=== PATIENT | male | born 1945 | race Caucasian/White ===

== ENCOUNTER 2025-03-17 06:07 | Emergency (ER) | payer MEDICARE, BC, SELFPAY ==
[2025-03-17 06:10] VITALS: BP 155/106
--- NOTE | 2025-03-17 07:16 | ED.GENMED ---
History of Present Illness
General
Chief Complaint: Nose Bleed
Source: patient
Exam Limitations: none
Time Seen by Provider: 03/17/25 06:40
Nursing documentation reviewed up to this point in time: agreed with
History of Present Illness
History of Present Illness:
pt is a 79 y/o M
h/o HTN, CKD, PAF on eliquis s/p ablation, valve repair
started with nosebleed R nostril 10 pm but it resolved quickly
went to bed and woke up at 4 am with constant bleeding R nostril, unable to control
minimal L nare bleeding
some feeling of blood down his throat
no lightheadedness, weakness
h/o anemia, mild
Past History
Past History
ED Past Medical History: HTN and Other (Gout)
Social History
Tobacco: Non-smoker
Personal:
Living: with family
Review of Systems
Review of Systems
Allergies reviewed?: Yes
All Other Systems: Not applicable
Phy Exam
Physical Exam
Physical Exam:
GENERAL: Alert , in no apparent distress
ENT: R nostril active bleeding; appears to be anterior but not able to identify source; posterior pharynx clear after garging with water, no obvious posterior bleeding
L nostril clear
CARDIAC: Regular rate and rhythm, no edema
LUNGS: Clear breath sounds bilaterally,
ABDOMEN: Soft, without focal tenderness, no r/g, no cvat, normal bowel sounds
NEUROLOGICAL: Alert and oriented, no focal neuro deficits
SKIN: Warm and dry, skin intact.
PSYCH: Normal and appropriate interaction.
Course
Orders/Labs/Results
Orders:
Orders
03/17/25 07:02
Oxymetazoline HCl [Afrin Nasal [place]] 30 sprays .ROUTE .STK-MED ONE
Tranexamic Acid 1,000 mg .ROUTE .STK-MED ONE
03/17/25 07:38
Complete Blood Count/With Diff Urgent
Abnormal Lab Results
03/17/25
07:38
RBC 4.40 L 10^6/uL
(4.70-6.10)
MCHC 32.6 L g/dL
(33.0-37.0)
RDW 16.1 H %
(11.5-14.5)
MPV 10.9 H fL
(7.4-10.4)
Absolute Monos (auto) 0.7 H 10^3/uL
(0.1-0.6)
Lymphocytes % 16.7 L %
(20.5-51.1)
03/17/25 07:38
Vital Signs
Initial and Last Documented VS:
Initial Vital Signs
Temp Pulse Resp BP Pulse Ox
36.6 C 97 20 155/106 97
03/17/25 06:10 03/17/25 06:10 03/17/25 06:10 03/17/25 06:10 03/17/25 06:10
Last Documented Vital Signs
Temp Pulse Resp BP Pulse Ox
36.6 C 58 16 154/88 97
03/17/25 06:10 03/17/25 07:39 03/17/25 07:39 03/17/25 07:39 03/17/25 07:39
Procedures
Nosebleed
Drug treatment: Neosynephrine and Tranexamic Acid
Treatment: local pressure applied and other (rhinorocket 5.5)
Post treatment bleeding: none- good control
MDM/Problems Addressed
Differential Diagnosis Includes:
epistaxis, anemia
MDM/Problems Addressed:
79 y/o M
h/o PAF on eliquis
here with nosebleed
spontaneous R nostril last night briefly
controlled until this am at 4 am
has been oozing since
dripping occ down throat
no syncope
no headache, not rauma
on exam pt had mod blood in his R nare without obvious source
L was cleared out by blowing and had no bleeding subsequently
no active posterior pharyncgeal bleeding
blew nose
neosynephrine each side
merocel soaked in txa briefly
then packed with 5.5 cm ant packing
tolerated well
observed for 1 hour, no bleeding
hg normal
d/c home
ent f.u
*Critical Care Note
Total Time (30-74mins, 75-104mins- exclusive of procedures): Not Applicable
ED Attending Note
-
Portions of this chart may have been created with voice recognition software.� Occasional wrong word or��sound alike� substitutions may have occurred due to the inherent limitations of voice recognition software.
Discharge Plan
Departure
Patient Disposition: Home (Routine Discharge)
Date of Disposition: 03/17/25
Time of Disposition: 07:55
Patient with high blood pressure during this ER visit?: Yes
Condition: Fair
Covid-19: Not Applicable
Discharge Problem:
Epistaxis
Instructions: Nosebleeds (DC), BLOOD PRESSURE
Prescriptions:
No Action
ascorbic acid (vitamin C) [Vitamin C] 1,000 MG tablet
1,000 mg PO DAILY
prednisone 10 MG tablet
10 mg PO .TAPER
clindamycin HCl 300 MG capsule
300 mg PO TID
aspirin 81 MG tablet,delayed release (DR/EC)
81 mg PO DAILY
calcium carbonate [Calcium 600] 600 MG tablet
600 mg PO DAILY
beta carotene 10,000 UNIT capsule
10,000 unit PO DAILY
vitamin B complex [Super B Complex] 1 TAB tablet
1 tab PO DAILY
allopurinol 300 MG tablet
300 mg PO DAILY
losartan-hydrochlorothiazide 1 EACH tablet
1 ea PO DAILY
docosahexaenoic acid-epa 1 CAP capsule
4 cap PO DAILY
vitamin E (dl, acetate) 400 UNIT capsule
400 unit PO DAILY
multivitamin with folic acid [Tab-A-Whit] 1 TABLET tablet
1 tab PO DAILY
Referrals:
Tc Ogden MD [Active] - Follow up in 2-3 days
UNKNOWN - PT DOES,NOT KNOW [Family Provider] -
Activity Restrictions/Additional Instructions:
Keep the packing in place for 2 days. Make sure you call for an appointment with ear nose and throat doctor for follow-up, it should be for 03/19
Tell them that you have nasal packing inside.
You may use a spray of Afrin in your left nostril tonight before bed if you feel congested. Otherwise return as needed for any severe or worsening symptoms like continued bleeding or bleeding down the back of your throat, lightheadedness, or any
concerns
Interventions
Interventions:
*Risk Screen - Suicide Last Done: 03/17/25 06:10
*General Assessment Last Done: 03/17/25 07:39
*Neglect/Abuse Screening Last Done: 03/17/25 06:30
*ED- Fall Risk Assessment Last Done: 03/17/25 06:30
*ED COVID-19 Vaccine History Last Done: 03/17/25 07:39
ED-EENT Assessment Last Done: 03/17/25 06:30
Discharge Date and Time
Print Language: PERSIAN
[2025-03-17 07:39] VITALS: BP 154/88; BMI 38.2
[2025-03-17 07:49] LABS: % Basophils 0.4 % (0-2); % Eosinophils 2.9 % (0-6); % Immature Granulocytes 0.3 % (0-0.5); % Lymphocytes 16.7 % (20.5-51.1); % Monocytes 9.3 % (1.7-9.3); % Neutrophils 70.4 % (42.2-75.2); Absolute Eosinophils 0.2 10^3/uL (0-0.7); Absolute Lymphocytes 1.3 10^3/uL (1.2-3.4); Absolute Monocytes 0.7 10^3/uL (0.1-0.6); Absolute Neutrophils 5.5 10^3/uL (1.4-6.5); Hematocrit 40.5 % (39.0-52.0); Hemoglobin 13.2 g/dL (13.0-18.0); Mean Corp Hgb Conc. 32.6 g/dL (33.0-37.0); Mean Platelet Volume 10.9 fL (7.4-10.4); Nucleated Red Blood Cells % 0 % (-); Platelet Count 180 10^3/uL (130-400); Red Cell Dist. Width 16.1 % (11.5-14.5); White Blood Cell Count 7.9 10^3/uL (4.8-10.8)
== END 2025-03-17 08:25 | disposition home or self-care (01) ==
LOC: EMR 06:07
PROVIDERS: Physician Assistant; EMERGENCY PHYSICIAN Emergency Medicine
DX: R04.0 Epistaxis (principal); I12.9 Hypertensive chronic kidney disease with stage 1 through stage 4 chronic kidney disease, or unspecified chronic kidney disease; N18.9 Chronic kidney disease, unspecified; I48.0 Paroxysmal atrial fibrillation; Z79.01 Long term (current) use of anticoagulants
CPT/HCPCS: 99282; 30901; 85025

== ENCOUNTER → 2025-10-11 13:24 | Outpatient (REF) | payer MEDICARE, BC, SELFPAY | LOC: MRI 13:24 | PROVIDERS: ATTENDING PHYSICIAN Physical Medicine & Rehabilitation; FAMILY PHYSICIAN Family Medicine | DX: M54.16 Radiculopathy, lumbar region (principal) | CPT/HCPCS: 72148 ==